=== PATIENT | female | born 1975 | race African-American/Black ===

== ENCOUNTER 2016-05-06 07:16 | Emergency (ER) | payer SELFPAY ==
[~2016-05-06] VITALS: Ht 162.6 cm; Wt 85.1 kg
[~2016-05-06 07:16] MED LIST: METFORMIN; TORADOL10 MG PO
[2016-05-06 07:54] LABS: BASOPHIL COUNT 0.1 K/uL (0-0.1); EOSINOPHIL (%) 2.6 % (0-5); EOSINOPHIL COUNT 0.2 K/uL (0-0.3); IMMATURE GRANULOCYTE (%) 0.4 % (0.0-0.7); INSTRUMENT ABS NEUTROPHIL CT 4.8 K/uL; LYMPHOCYTE COUNT 2.8 K/uL (1.0-2.8); MCH 27.9 PG (29.0-34.0); MCHC 33.4 G/DL (30.0-36.0); MCV 83.5 FL (83-99); MEAN PLAT.VOLUME 11.1 uM^3 (9.5-12.4); MONOCYTE (%) 6.3 % (3-12); MONOCYTE COUNT 0.5 K/uL (0-0.8); NEUTROPHIL (%) 56.7 % (45-76); NEUTROPHIL COUNT 4.8 K/uL (1.8-6.4); PLATELET COUNT 250 K/uL (156-360); RBC DIS.WIDTH-CV 12.7 % (11.8-14.6); RBC DIS.WIDTH-SD 38.4 % (39-53); RED BLOOD COUNT 4.91 M/uL (3.80-5.20); WHITE BLOOD COUNT 8.5 K/uL (4.1-10.2)
[2016-05-06 08:00] LABS: ADD MIUA? YES; BILIRUBIN NEGATIVE; BLOOD SMALL; COLOR YELLOW ((YELLOW)); GLUCOSE (STRIP) >=500; KETONES NEGATIVE; LEUKOCYTES NEGATIVE; NITRITE NEGATIVE; PROTEIN (STRIP) NEGATIVE; SPECIFIC GRAVITY 1.032 (1.000-1.030); UROBILINOGEN 0.2 MG/DL (0.2-1.0)
[2016-05-06 08:01] LABS: BACTERIA RARE /HPF; EPITHELIAL CELLS RARE /HPF; MUCUS TRACE /LPF; RED BLOOD CELLS 0-5 /HPF (0-5); WHITE BLOOD CELLS 0-5 /HPF (0-5)
[2016-05-06 08:06] LABS: CHLORIDE 102 mEq/L (99-109); POTASSIUM 4.1 mEq/L (3.7-5.4); SODIUM 133 mEq/L (136-147)
[2016-05-06 08:09] LABS: ANION GAP 10 MEQ/L (2-14)
[2016-05-06 08:11] LABS: GFR ESTIMATE (CALCULATED) > 59 mL/min/
[2016-05-06 08:12] LABS: UREA NITROGEN (BUN) 12 mg/dL (9-23)
[2016-05-06 08:16] LABS: GLUCOSE 498 mg/dL (70-99)
[2016-05-06 08:25] LABS: POINT-OF-CARE METER ID UU13113702
[2016-05-06 09:59] LABS: POINT-OF-CARE METER ID UU13113702
[2016-05-06] MEDS ORDERED: METFORMIN HCL1000 MG PO (10:22)
[2016-05-06] MEDS ORDERED: GLIMEPIRIDE2 MG PO ×2 (10:23→12:10)
[2016-05-06] MEDS ORDERED: LOSARTAN POTASS50 MG PO (10:23)
[2016-05-06 12:09] LABS: POINT-OF-CARE METER ID UU13113702
[2016-05-06 12:45] VITALS: BP 118/68
== END 2016-05-06 12:46 | disposition home or self-care (01) ==
LOC: EME 07:16
PROVIDERS: Emergency Medicine
DX: E11.65 Type 2 diabetes mellitus with hyperglycemia (principal); T38.3X6A Underdosing of insulin and oral hypoglycemic [antidiabetic] drugs, initial encounter; F17.200 Nicotine dependence, unspecified, uncomplicated; Z91.14 Patient's other noncompliance with medication regimen; Z79.84 Long term (current) use of oral hypoglycemic drugs
CPT/HCPCS: 80048; 81003; 82010; 82948; 85025; 99281; 99285; J7030

== ENCOUNTER 2017-04-24 06:02 | Emergency (ER) | payer OTHER ==
[~2017-04-24] VITALS: Ht 160 cm; Wt 91.6 kg
[~2017-04-24 06:02] MED LIST changes: +GLIMEPIRIDE2 MG PO; +LOSARTAN POTASS50 MG PO; +METFORMIN HCL1000 MG PO
[2017-04-24] MEDS ORDERED: KEFLEX500 MG PO (07:49)
[2017-04-24] MEDS ORDERED: BACTRIM,SEPT1 TABLET PO (07:49)
[2017-04-24] MEDS ORDERED: MOTRIN800 MG PO (07:59)
[2017-04-24 08:15] VITALS: BP 152/97
== END 2017-04-24 08:49 | disposition home or self-care (01) ==
LOC: EME 06:02
PROC: 0H96XZZ Drainage of Back Skin, External Approach (ICD-10-PCS; principal; 2017-04-24)
DX: L02.212 Cutaneous abscess of back [any part, except buttock and flank] (principal); E11.9 Type 2 diabetes mellitus without complications; Z79.84 Long term (current) use of oral hypoglycemic drugs; I10 Essential (primary) hypertension; F17.200 Nicotine dependence, unspecified, uncomplicated; J45.909 Unspecified asthma, uncomplicated
CPT/HCPCS: 99281; 99283